=== PATIENT | female | born 1955 | race Caucasian/White ===

== ENCOUNTER 2019-12-09 12:19 | Outpatient (CLI) | payer MEDICARE, OTHER ==
--- NOTE | 2019-12-09 12:49 | RAD ---
EXAM: Chest 2 views: HISTORY: Cough and Covid positive COMPARISON: 11/10/2013 FINDINGS: There is a normal-sized cardiomediastinal silhouette. Atelectasis is seen in the left lung base. Th ere is no evidence of consolidation, mass, or pleural effusion. The bones are unremarkable. IMPRESSION: No evidence of acute cardiopulmonary disease
== END 2019-12-09 12:20 | disposition home or self-care (01) ==
LOC: NAV RAD 12:19
PROVIDERS: ATTEND Family Medicine
DX: U07.1 COVID-19 (principal); R05 Cough
CPT/HCPCS: 71046